=== PATIENT | male | born 1970 ===

== ENCOUNTER 2018-08-20 12:40 | Emergency (ER) | payer OTHER ==
[2018-08-20 12:50] VITALS: BP 149/100; PULSE 101; RESP 16; TEMP 98; O2SAT 95
--- NOTE | 2018-08-20 14:16 | ED PDOC ---
Lower Extremity Pain/Injury Time Seen by Provider: 08/20/18 13:05 Chief Complaint (Nursing): Lower Extremity Problem/Injury Chief Complaint (Provider): Left knee pain History Per: Patient, Other History/Exam Limitations: no limitations Onset/Duration Of Symptoms: Days (x2 yrs) Current Symptoms Are (Timing): Still Present Additional Complaint(s): Wilian Barakat is a 47 year old male, with no significant past medical history, who presents to the emergency department complaining of a worsening chronic left knee pain for the past x2 years. Patient reports pain has been more consistent and reports continuing pain and swelling. He denies any new injuries or trauma. No further medical complaints. PMD: None provided. Past Medical History Reviewed: Historical Data, Nursing Documentation, Vital Signs Vital Signs: Last Vital Signs Temp 98.0 F 08/20/18 12:47 Pulse 101 H 08/20/18 12:47 Resp 16 08/20/18 12:47 BP 149/100 H 08/20/18 12:47 Pulse Ox 95 08/20/18 12:47 - Medical History PMH: Chronic Pain (left knee) - Surgical History Surgical History: No Surg Hx - Family History Family History: States: Unknown Family Hx - Social History Alcohol: Social Drugs: Denies - Home Medications Home Medications: Ambulatory Orders Medication Instructions Recorded Ibuprofen [Motrin Tab] 600 mg PO Q8 5 Days tab 08/20/18 - Allergies Allergies/Adverse Reactions: Allergies Allergy/AdvReac Type Severity Reaction Status Date / Time No Known Allergies Allergy Verified 08/20/18 12:50 Review of Systems ROS Statement: Except As Marked, All Systems Reviewed And Found Negative Musculoskeletal: Positive for: Leg Pain (left knee pain and swelling) Physical Exam - Reviewed Nursing Documentation Reviewed: Yes Vital Signs Reviewed: Yes - Physical Exam Appears: Positive for: No Acute Distress Head Exam: Positive for: ATRAUMATIC, NORMOCEPHALIC Skin: Positive for: Normal Color, Warm, Dry Eye Exam: Positive for: Normal appearance Neck: Positive for: Painless ROM Respiratory: Negative for: Respiratory Distress Extremity: Positive for: Normal ROM (lower extremities), Tenderness (minimal tenderness over the anterior left knee.), Swelling (Moderate swelling over the anterior knee. Positive supra patellar effusion). Negative for: Deformity Neurologic/Psych: Positive for: Alert, Oriented. Negative for: Motor/Sensory Deficits - ECG O2 Sat by Pulse Oximetry: 95 (RA) Pulse Ox Interpretation: Normal Medical Decision Making Medical Decision Making: Time: 13:05 Initial Impression: Chronic left knee pain Initial Plan: --Knee 4 or more views LT [RAD] --Motrin tab 600 mg PO --Reevaluation 14:00 -Read by provider, X-Ray shows moderate DJD with no acute fracture. 14:15 Patient was placed on an ren wrap. Crutches were offered but he declined. Patient declines pain medications and was advised to follow up with Dr. Hutchinson , Orthopedist. Scribe Attestation: Documented by Johnny Schaefer, acting as a scribe for Argenis Olea PA-C Provider Scribe Attestation: All medical record entries made by the Scribe were at my direction and personally dictated by me. I have reviewed the chart and agree that the record accurately reflects my personal performance of the history, physical exam, medical decision making, and the department course for this patient. I have also personally directed, reviewed, and agree with the discharge instructions and disposition. Disposition - Clinical Impression Clinical Impression: Knee pain - Patient ED Disposition Is Patient to be Admitted: No Doctor Will See Patient In The: ED Counseled Patient/Family Regarding: Studies Performed - Disposition Referrals: Jagdish Hutchinson MD [Staff Provider] - Disposition: Routine/Home Disposition Time: 14:16 Condition: IMPROVED Prescriptions: Ibuprofen [Motrin Tab] 600 mg PO Q8 5 Days tab Instructions: Chronic Knee Pain Forms: [employer] (Portuguese)
--- NOTE | 2018-08-20 17:03 | RAD ---
Date of service: 08/20/2018 PROCEDURE: Left Knee Radiographs. HISTORY: Pain. COMPARISON: None. FINDINGS: BONES: Bone alignment is normal. There is no acute displaced fracture or bone destruction. There is periarticular bone demineralization. JOINTS: There is moderate tricompartmental degenerative osteoarthrosis with reduced joint spaces, marginal osteophytes and tibial spiking, worse in the media compartment. JOINT EFFUSION: There is a large suprapatellar joint effusion. OTHER FINDINGS: None. IMPRESSION: Moderate tricompartmental degenerative osteoarthrosis, worse in the medial compartment and large suprapatellar joint effusion.
== END 2018-08-20 14:27 | disposition home or self-care (01) ==
LOC: H.ER 12:40
DX: M25.562 Pain in left knee (principal); G89.29 Other chronic pain

== ENCOUNTER 2018-11-14 21:46 | Emergency (ER) | payer SELFPAY ==
--- NOTE | 2018-11-15 01:51 | ED PDOC ---
HPI: Psych/Substance Abuse Time Seen by Provider: 11/14/18 22:14 Chief Complaint (Nursing): Alcohol Ingestion Chief Complaint (Provider): Alcohol Ingestion History Per: Patient History/Exam Limitations: no limitations Onset/Duration Of Symptoms: Hrs Current Symptoms Are (Timing): Still Present Suicide/Self Injury Attempted (Context): None Modifying Factor(s): Alcohol Additional Complaint(s): 48 y/o male brought in by EMS for alcohol intoxication, onset prior to arrival. Patient admits he was drinking today as it was his birthday. Patient is complaining of left knee pain that has been occurring for three years. Denies trauma, numbness and tingling. PMD: none Past Medical History Reviewed: Historical Data, Nursing Documentation, Vital Signs Vital Signs: Last Vital Signs Temp 98 F 11/14/18 21:47 Pulse 108 H 11/14/18 21:47 Resp 16 11/14/18 21:47 BP 115/57 L 11/14/18 21:47 Pulse Ox 95 11/14/18 21:47 - Medical History PMH: Chronic Pain (left knee) - Surgical History Surgical History: No Surg Hx - Family History Family History: States: Unknown Family Hx - Home Medications Home Medications: Ambulatory Orders Medication Instructions Recorded Acetaminophen [Tylenol] 325 mg PO Q6 PRN #30 tab 09/03/18 Naproxen [Naprosyn] 500 mg PO BID #20 tab 09/03/18 - Allergies Allergies/Adverse Reactions: Allergies Allergy/AdvReac Type Severity Reaction Status Date / Time No Known Allergies Allergy Verified 11/14/18 21:47 Review of Systems ROS Statement: Except As Marked, All Systems Reviewed And Found Negative Psych: Positive for: Other (EtOH intoxication) Physical Exam - Reviewed Nursing Documentation Reviewed: Yes Vital Signs Reviewed: Yes - Physical Exam Appears: Positive for: No Acute Distress Head Exam: Positive for: ATRAUMATIC, NORMOCEPHALIC Skin: Positive for: Normal Color, Warm, Dry Eye Exam: Positive for: Normal appearance, EOMI, PERRL Neck: Positive for: Normal, Painless ROM, Supple Cardiovascular/Chest: Positive for: Regular Rate, Rhythm. Negative for: Murmur Respiratory: Positive for: Normal Breath Sounds. Negative for: Respiratory Distress Pulses-Dorsalis Pedis (L): 2+ Pulses-Dorsalis Pedis (R): 2+ Gastrointestinal/Abdominal: Positive for: Normal Exam, Soft. Negative for: Tenderness Extremity: Positive for: Normal ROM, Swelling (moderate swelling in the left knee), Other ((+) Crepidous. No warmth, erythema, break- in skin integrity. ). Negative for: Tenderness Neurologic/Psych: Positive for: Alert, Oriented, Gait (steady and unassisted), Other (Mild Slurred Speech and alcohol on breath). Negative for: Motor/Sensory Deficits - ECG O2 Sat by Pulse Oximetry: 95 (RA) Pulse Ox Interpretation: Normal - Radiology X-Ray: Interpreted by Me (Knee x-ray) X-Ray Interpretation: Other (moderate DJD) - Progress ED Course And Treament: 0443 On re-evaluation, pt. informed of x-ray results and advised to f/u with ortho. No slurred speech. Gait steady, unassisted. Clinically sober. Medical Decision Making Medical Decision Making: Time: 2313 Plan: -- Finger Stick -- Glucose, POC Time: 2341 Plan: -- Alcohol Serum -- Knee 3 Views Left XR Time: 2 Plan: -- Motrin 600 mg PO ____ Scribe Attestation: Documented by Shannan Faria, acting as a scribe for Braden Ambrosio PA-C. Provider Scribe Attestation: All medical record entries made by the Scribe were at my direction and personally dictated by me. I have reviewed the chart and agree that the record accurately reflects my personal performance of the history, physical exam, medical decision making, and the department course for this patient. I have also personally directed, reviewed, and agree with the discharge instructions and disposition. Disposition - Clinical Impression Clinical Impression: Knee pain, Alcohol intoxication - Patient ED Disposition Is Patient to be Admitted: No - Disposition Referrals: [facility] [Outside] Julio Cesar Gomes III, MD [Staff Provider] - Disposition: Routine/Home Disposition Time: 04:42 Condition: IMPROVED Additional Instructions: JARED AGUILLON, thank you for letting us take care of you today. Your provider was Nadir Urena MD and you were treated for ETOH. The emergency medical care you received today was directed at your acute symptoms. If you were prescribed any medication, please fill it and take as directed. It may take several days for your symptoms to resolve. Return to the Emergency Department if your symptoms worsen, do not improve, or if you have any other problems. Please contact your doctor or call one of the physicians/clinics you have been referred to that are listed on the Patient Visit Information form that is included in your discharge packet. Bring any paperwork you were given at discharge with you along with any medications you are taking to your follow up visit. Our treatment cannot replace ongoing medical care by a primary care provider outside of the emergency department. Thank you for allowing the [facility] team to be part of your care today. If you had an X-Ray or CT scan: A Radiologist will review the ED reading if any change in treatment is needed we will contact you. If you had a blood, urine, or wound culture: It will take several days for the results, if any change in treatment is needed we will contact you. If you had an STI test: It will take 48 hours for the results. Please call after 1 week if you have not heard back. Instructions: Chronic Knee Pain (DC), Alcohol Abuse and Alcoholism (DC) Forms: [employer] (Trinidadian)
[2018-11-15 06:51] VITALS: BP 110/71; PULSE 82; RESP 18; TEMP 98.3; O2SAT 97
--- NOTE | 2018-11-15 09:17 | RAD ---
Date of service: 11/14/2018 PROCEDURE: Left Knee Radiographs. HISTORY: Pain. COMPARISON: No left knee radiographs 08/20/2018. FINDINGS: BONES: Interval increase in joint space narrowing is appreciate the medial femorotibial compartment with gross cortical sclerosis and prominent osteophyte development again evident. Similar changes are present including joint space narrowing at the patellofemoral compartment with the lateral femorotibial compartment least affected. No acute fracture, subluxation or dislocation. JOINTS: As above. JOINT EFFUSION: Trace residual or recurrent pleural suprasellar bursa effusion noted. OTHER FINDINGS: None. IMPRESSION: Advanced osteoarthritis worsened in the interval, particularly at the medial femorotibial compartment. No acute fracture or dislocation identified.
== END 2018-11-15 06:51 | disposition home or self-care (01) ==
LOC: H.ER 21:46
DX: F10.129 Alcohol abuse with intoxication, unspecified (principal); M25.512 Pain in left shoulder; G89.29 Other chronic pain
CPT/HCPCS: 73562; 82948; 99283; G0480